=== PATIENT | female | born 1975 | race Caucasian/White ===

== ENCOUNTER → 2021-10-15 12:25 | Outpatient (BNVA) | payer OTHER, SELFPAY | PROVIDERS: PCP Nurse Practitioner Family; Visit Provider Nurse Practitioner Family | DX: G43.909 Migraine, unspecified, not intractable, without status migrainosus (principal); M19.90 Unspecified osteoarthritis, unspecified site; R63.4 Abnormal weight loss; R53.83 Other fatigue; Z13.220 Encounter for screening for lipoid disorders; Z13.6 Encounter for screening for cardiovascular disorders; K91.5 Postcholecystectomy syndrome; Z12.31 Encounter for screening mammogram for malignant neoplasm of breast; Z12.4 Encounter for screening for malignant neoplasm of cervix | CPT/HCPCS: 80053; 80061; 84439; 84443; 84481 ==

== ENCOUNTER 2021-11-30 08:42 | Outpatient (CLI) | payer OTHER, SELFPAY ==
--- NOTE | 2021-11-30 08:46 | MM_ITS ---
WS: [id number] BILATERAL SCREENING DIGITAL TOMOSYNTHESIS MAMMOGRAM WITH CAD HISTORY: screening COMPARISON: 10/26/2014 Bilateral CC and MLO views with tomosynthesis and synthetic mammography submitted. Computer aided det ection analyzed. Breast composition: The breasts are heterogeneously dense, which may obscure small masses. No suspici ous masses, microcalcifications or architectural distortion. Numerous calcifications within each bere st. Calcifications are scattered and not clustered. Calcifications have increased in number since 201 5. MM/[place] [id number] IMPRESSION: BI-RADS: 2-Benign FOLLOW UP: 1 Year Follow-up
== END 2021-11-30 08:43 | disposition home or self-care (01) ==
LOC: RAD 08:42
PROVIDERS: PCP Nurse Practitioner Family; Visit Provider Nurse Practitioner Family
DX: Z12.31 Encounter for screening mammogram for malignant neoplasm of breast (principal); Z01.419 Encounter for gynecological examination (general) (routine) without abnormal findings
CPT/HCPCS: 77063; 77067; 87624

== ENCOUNTER → 2022-04-24 10:45 | Outpatient (BNVA) | payer OTHER, SELFPAY | PROVIDERS: PCP Nurse Practitioner Family; Visit Provider Nurse Practitioner Family | DX: G43.909 Migraine, unspecified, not intractable, without status migrainosus (principal); M19.90 Unspecified osteoarthritis, unspecified site; K91.5 Postcholecystectomy syndrome | CPT/HCPCS: 80053; 85025 ==

== ENCOUNTER → 2022-07-09 11:28 | Outpatient (BNVA) | payer OTHER, SELFPAY | PROVIDERS: PCP Nurse Practitioner Family; Visit Provider Nurse Practitioner Family | DX: M25.512 Pain in left shoulder (principal); W19.XXXA Unspecified fall, initial encounter; Y92.009 Unspecified place in unspecified non-institutional (private) residence as the place of occurrence of the external cause | CPT/HCPCS: 73030 ==

== ENCOUNTER → 2022-07-16 14:13 | Outpatient (BNVA) | payer OTHER, SELFPAY | PROVIDERS: PCP Nurse Practitioner Family; Referring Provider Nurse Practitioner Family; Visit Provider Orthopaedic Surgery | DX: M75.02 Adhesive capsulitis of left shoulder (principal) | CPT/HCPCS: 99203 ==

== ENCOUNTER 2022-07-31 06:00 | Outpatient (RCR) | payer OTHER, SELFPAY | END 2022-07-31 23:59 | disposition home or self-care (01) | LOC: TPT 06:00 | PROVIDERS: Visit Provider Orthopaedic Surgery | DX: M75.02 Adhesive capsulitis of left shoulder (principal) | CPT/HCPCS: 97162 ==

== ENCOUNTER 2022-08-01 06:00 | Outpatient (RCR) | payer OTHER, SELFPAY | END 2022-08-30 23:59 | disposition home or self-care (01) | LOC: TPT 06:00 | PROVIDERS: Visit Provider Orthopaedic Surgery | DX: M75.02 Adhesive capsulitis of left shoulder (principal) | CPT/HCPCS: 97110; 97140 ==

== ENCOUNTER 2022-08-31 06:00 | Outpatient (RCR) | payer OTHER, SELFPAY | END 2022-09-13 23:59 | disposition home or self-care (01) | LOC: TPT 06:00 | PROVIDERS: Visit Provider Orthopaedic Surgery | DX: M75.02 Adhesive capsulitis of left shoulder (principal) | CPT/HCPCS: 97110; 97140; 97164 ==

== ENCOUNTER → 2022-10-01 07:52 | Outpatient (BNVA) | payer OTHER, SELFPAY | PROVIDERS: PCP Nurse Practitioner Family; Visit Provider Nurse Practitioner Family | DX: K91.5 Postcholecystectomy syndrome (principal); G43.909 Migraine, unspecified, not intractable, without status migrainosus; M19.90 Unspecified osteoarthritis, unspecified site; M25.512 Pain in left shoulder; R53.83 Other fatigue | CPT/HCPCS: 80053; 84443 ==

== ENCOUNTER 2022-12-25 12:20 | Outpatient (CLI) | payer OTHER, SELFPAY ==
--- NOTE | 2022-12-25 12:47 | MM_ITS ---
WS: [id number] BILATERAL 3D TOMOSYNTHESIS DIGITAL SCREENING MAMMOGRAPHY WITH CAD CLINICAL INFORMATION: Z12.31 - Encounter for screening mammogram for malignant ... HISTORY: Screening mammogram. No current complaints. COMPARISON: 2021 TECHNIQUE: Bilateral CC and MLO views. FINDINGS: The breasts are composed of heterogeneous fibroglandular density tissue, which can limit the detectio n of small underlying mass lesions. No suspicious mass, asymmetry, calcifications, or architectural d istortion. No evidence of malignancy. Incidental punctate and clustered calcifications. IMPRESSION: MM/[place] [id number] BI-RADS: 2-Benign FOLLOW UP: 1 Year Follow-up Recommend return to annual screening mammography.
== END 2022-12-25 12:21 | disposition home or self-care (01) ==
LOC: RAD 12:22
PROVIDERS: PCP Nurse Practitioner Family; Visit Provider Nurse Practitioner Women's Health
DX: Z12.31 Encounter for screening mammogram for malignant neoplasm of breast (principal)
CPT/HCPCS: 77063; 77067

== ENCOUNTER 2023-01-10 08:50 | Emergency (ER) | payer OTHER, SELFPAY ==
[2023-01-10 09:17] VITALS: BP 115/76; PULSE 102; RESP 17; TEMP 36.4; O2SAT 94; BMI 15.9
--- NOTE | 2023-01-10 09:55 | W.ED.NAVMDI ---
HPI - Nausea/Vomiting/Diarrhea General: Chief complaint: Nausea/Vomiting/Diarrhea Stated complaint: NVD Time Seen by Provider: 01/10/23 09:34 Source: patient and family Mode of arrival: ambulatory Limitations: no limitations History of Present Illness: Patient is a 47-year-old female presents to ED today with a complaint of nausea, vomiting, diarrhea, and body aches. Patient states symptoms started approximately 2.5 days ago. She states they had ate [place] food on Friday for lunch and by 11 PM that evening she began feeling ill. Her significant other who also ate [place] was not sick. She states she had one episode of vomiting at that time but none since although she has continued to feel incredibly nauseous. She has had approximately 10 episodes of watery diarrhea daily since. She is having some abdominal cramping. Overall feels weak because she has not ate much over the past 2 to 3 days. No reported fevers but states she feels hot. MD elicited complaint: nausea, vomiting and diarrhea Onset (ago): day(s) Description of diarrhea: watery Associated nausea: Yes Associated abdominal pain: Yes Location of pain: Diffuse Pain consistency: constant Quality: cramping Exacerbating factors: none Relieving factors: none Associated symtoms: Reports nausea; Denies change in vision, chest pain, dysuria, fatigue, headache(s), palpitations or syncope Review of Systems Const: Reports: chills and body aches; Denies: fever(s) or fatigue Eyes: Denies: change in vision, blurry vision, photophobia, floaters or seeing flashes ENMT: Denies: throat pain, odynophagia, ear or mastoid pain, nasal discharge, nasal congestion or sinus pain Card: Denies: chest pain, palpitations, irregular heart rhythm, edema, swelling of feet/ankles, lightheadedness, syncope or pre-syncope Resp: Denies: dyspnea, productive cough, non-productive cough, pain on inspiration or chest congestion GI: Reports: abdominal pain, nausea, vomiting, diarrhea and GI cramping; Denies: hematemesis, heartburn, hematochezia or melena : Denies: flank pain, difficulty voiding, dysuria, urinary frequency, urinary urgency or urinary hesitancy Musc: Reports: other (generalized achiness ); Denies: neck pain, back pain or extremity pain Skin/Breast: Denies: rash Neuro: Denies: headache(s), numbness in extremities, weakness in extremities or sensory changes PFSH ED PFSH: Medical History Dysplasia of cervix Surgical History H/O colonoscopy H/O eye surgery (~11/21/22) XEN fel stent placed in left eye due to pressure in eye being 67. Performed by Dr. Judah White on 11/21/2022 History of endometrial ablation (~2013) Hx of cholecystectomy Family History Other Adopted Physical Exam Const: COMMON NORMALS: patient oriented x3, no limitations, alert and well nourished GENERAL APPEARANCE: cooperative and in distress (looks like she doesn't feel well) NUTRITIONAL APPEARANCE: thin HENMT: COMMON NORMALS: normocephalic and atraumatic HEAD & SCALP: normal to inspection, normocephalic and atraumatic Eye: COMMON NORMALS: no scleral icterus GENERAL EYE: appearance normal, both eyes and all related structures Neck/C-Spine: COMMON NORMALS: full ROM, no lymphadenopathy, supple and no meningeal signs Chest: COMMONS NORMALS: normal inspection of the chest Resp: COMMON NORMALS: normal respiratory effort and clear to auscultation bilaterally AUSCULTATION: clear to auscultation bilaterally Cardio: COMMON NORMALS: regular rate and regular rhythm RATE: regular rate RHYTHM: regular rhythm GI: COMMON NORMALS: Normal to inspection, nondistended, normoactive bowel sounds present, Soft to palpation, No hepatosplenomegaly present and no masses INSPECTION: Yes normal to inspection AUSCULTATION: Yes normoactive bowel sounds PALPATION: Yes Soft to palpation, Yes Tenderness to palpation present (GI) (generalized tenderness), No Guarding due to palpation present (GI), No Rigid due to palpation and Yes No hepatosplenomegaly present : COMMON NORMALS: Yes no CVA tenderness BLADDER/KIDNEY EXAM: Yes no CVA tenderness Back/Pelvis: COMMON NORMALS: no CVA tenderness and thoracic and lumbar spine normal to inspection Extremity: COMMON NORMALS: normal to inspection GENERAL: Yes normal exam except as noted Neuro: RICHARD COMA SCALE: document GCS findings Richard coma scale eye opening: Spontaneous Dermott coma scale verbal response: Orientated Richard coma scale motor response: Obey commands Richard coma scale total score: 15 COMMON NORMALS: patient oriented x3 SENSORIUM/ORIENTATION: Yes alert MENINGEAL SIGNS: Yes no meningeal signs Skin: COMMON NORMALS: no rashes or lesions noted GENERAL SKIN EXAM: no rashes or lesions noted Course Vital Signs: Vital signs: Vital Signs Temperature 97.5 F L 01/10/23 09:17 Pulse Rate 102 H 01/10/23 09:17 Respiratory Rate 17 01/10/23 09:17 Blood Pressure 115/76 01/10/23 09:17 Pulse Oximetry 94 01/10/23 09:17 Oxygen Delivery Me thod Room Air 01/10/23 09:17 MDM - Nausea/Vomiting/Diarrhea Medical Decision Making Patient here for nausea, generalized body aches, and diarrhea over the past 2.5 days. She has not had any episodes of vomiting or diarrhea here. She was given IV fluids/zofran and does feel better. Her vital signs are stable. Blood work overall is nonactionable. She has a normal white count. Nonspecific elevations to her liver enzymes. She does have a normal tbili and lipase. She is status postcholecystectomy. Hepatitis panel negative. Flu and COVID-negative. I feel symptoms most likely are secondary to a nonspecific viral gastroenteritis. Discussed following up with primary care next week. If diarrhea persist they may opt to perform stool samples. She will also need to have liver enzymes retested. Strict return ED precautions given. Lab Data 01/10/23 10:00 01/10/23 10:00 Laboratory Results WBC 6.61 10^3/uL (3.29-11.43) 01/10/23 10:00 RBC 5.18 10^6/uL (3.85-5.65) 01/10/23 10:00 Hgb 16.80 g/dL (11.27-16.99) 01/10/23 10:00 Hct 50.0 % (36-47) H 01/10/23 10:00 MCV 96.5 fl (85-98) 01/10/23 10:00 MCH 32.4 pg (27-33) 01/10/23 10:00 MCHC 33.6 g/dL (30-55) 01/10/23 10:00 RDW 12.0 % (12.1-15.1) L 01/10/23 10:00 Plt Count 153 10^3/cmm (157-399) L 01/10/23 10:00 MPV 10.8 fL (7.4-10.4) H 01/10/23 10:00 Neut % (Auto) 82.3 % 01/10/23 10:00 Lymph % (Auto) 8.6 % 01/10/23 10:00 [place] % (Auto) 7.9 % 01/10/23 10:00 Eos % (Auto) 0.2 % 01/10/23 10:00 Baso % (Auto) 0.2 % 01/10/23 10:00 Neut # (Auto) 5.45 10^3/uL (1.8-7.7) 01/10/23 10:00 Lymph # (Auto) 0.6 10^3/uL (0.8-4.8) L 01/10/23 10:00 [place] # (Auto) 0.5 10^3/uL (0.2-0.9) 01/10/23 10:00 Eos # (Auto) 0.0 10^3/uL (0.0-0.8) 01/10/23 10:00 Baso # (Auto) 0.0 10^3/uL (0.0-0.1) 01/10/23 10:00 Nucleated RBC % (auto) 0 % 01/10/23 10:00 Nucleated RBCs # 0.0 /100WBC 01/10/23 10:00 Sodium 133 mmol/L (136-145) L 01/10/23 10:00 Potassium 3.6 mmol/L (3.5-5.1) 01/10/23 10:00 Chloride 95 mmol/L (98-107) L 01/10/23 10:00 Carbon Dioxide 22 mmol/L (22-29) 01/10/23 10:00 Anion Gap 19.6 (5-19) H 01/10/23 10:00 BUN 14 mg/dL (6-20) 01/10/23 10:00 Creatinine 0.8 mg/dL (0.5-0.9) 01/10/23 10:00 GFR Calculation 77.2 mL/min (90-130) L 01/10/23 10:00 Glucose 113 mg/dL (65-115) 01/10/23 10:00 Calculated Osmolality 277 mOsm/kg (285-295) L 01/10/23 10:00 Calcium 9.2 mg/dL (8.5-10.5) 01/10/23 10:00 Total Bilirubin 0.7 mg/dL (0.15-1.2) 01/10/23 10:00 AST 100 U/L (0-32) H 01/10/23 10:00 ALT 147 U/L (0-33) H 01/10/23 10:00 Alkaline Phosphatase 259 U/L (35-105) H 01/10/23 10:00 Creatine Kinase 78 U/L (26-192) 01/10/23 10:00 Total Protein 8.1 g/dL (6.6-8.7) 01/10/23 10:00 Albumin 4.2 g/dL (3.5-5.2) 01/10/23 10:00 Globulin 3.9 g/dL (1.3-4.6) 01/10/23 10:00 Lipase 13 U/L (13-60) 01/10/23 10:00 HCG, Qual Negative (Negative) 01/10/23 10:00 Hepatitis A IgM Ab Non-reactive (Nonreactive) 01/10/23 10:00 Hep Bs Antigen Non-reactive (Nonreactive) 01/10/23 10:00 Hep B Core IgM Ab Non-reactive (Nonreactive) 01/10/23 10:00 Hepatitis C Antibody Non-reactive (Nonreactive) 01/10/23 10:00 Influenza Type A Ag negative (Negative) 01/10/23 10:59 Influenza Type B Ag negative (Negative) 01/10/23 10:59 SARS-CoV-2 Ag (Rapid) negative (Negative) 01/10/23 10:59 No radiology studies performed this visit Discharge Plan Discharge Patient Disposition: Home Clinical Impression: Gastroenteritis Condition: Stable Prescriptions: New ondansetron 4 mg tablet,disintegrating 4 mg PO Q8H PRN (Reason: nausea and vomiting) Qty: 14 0RF No Action prednisolone acetate 1 % drops,suspension 1 drp ophthalmic (eye) QID Rx Instructions: use in left eye colestipol 1 gram tablet 1 g PO DAILY 90 Days Qty: 90 1RF Nurtec ODT 75 mg tablet,disintegrating 75 mg PO QDAY 30 Days Qty: 30 11RF Rx Instructions: 1 tab every other day for prevention, 1 as needed for breakthrough migraine headache propranolol 80 mg capsule,extended release 24hr 80 mg PO DAILY 90 Days Qty: 90 1RF tramadol 50 mg tablet 50 mg PO TID 30 Days Qty: 90 1RF dorzolamide-timolol 22.3-6.8 mg/mL drops 1 drp ophthalmic (eye) BID Rx Instructions: use in right eye Discharge Orders: Discharge ED (Routine); Ordered 01/10/23 Ordered By: Natalia Kenney Referrals: Vanessa Maza NP [Primary Care Provider] - Patient Instructions: Gastroenteritis (DC) Activity Restrictions/Additional Instructions: As we discussed continue to push fluids is much as possible to prevent dehydration. Please follow-up with your primary care provider next week for reevaluation. If diarrhea persists they may opt to perform stool samples at that time. As we discussed you had nonspecific elevations to your liver enzymes. These also need to be rechecked through primary care. You may return to the emergency department for worsening pain, repetitive/continued episodes of vomiting or diarrhea, yellowing to your skin or eyes, fevers greater than 100.4, generally feeling worse or unwell, or any other concerns you may have. I hope you begin to feel better soon. 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
[2023-01-10 10:11] LABS: Basophils % 0.2 %; Eosinophils % 0.2 %; Lymphocytes # 0.6 10^3/uL (0.8-4.8); Lymphocytes % 8.6 %; Mean Corpuscular HGB Conc 33.6 g/dL (30-55); Mean Corpuscular Hemoglobin 32.4 pg (27-33); Mean Corpuscular Volume 96.5 fl (85-98); Mean Platelet Volume 10.8 fL (7.4-10.4); Monocytes # 0.5 10^3/uL (0.2-0.9); Monocytes % 7.9 %; Neutrophils # 5.45 10^3/uL (1.8-7.7); Neutrophils % 82.3 %; Nucleated Red Blood Cells % 0 %; Platelet Count 153 10^3/cmm (157-399); Red Blood Count 5.18 10^6/uL (3.85-5.65); White Blood Count 6.61 10^3/uL (3.29-11.43)
--- NOTE | 2023-01-10 10:12 | PC.PHAR ---
pt states has not taken any meds in 3 days
[2023-01-10 10:24] LABS: Alanine Aminotransferase 147 U/L (0-33); Albumin Level 4.2 g/dL (3.5-5.2); Alkaline Phosphatase 259 U/L (35-105); Anion Gap 19.6 (5-19); Aspartate Amino Transferase 100 U/L (0-32); Blood Urea Nitrogen 14 mg/dL (6-20); Calcium 9.2 mg/dL (8.5-10.5); Carbon Dioxide 22 mmol/L (22-29); Chloride 95 mmol/L (98-107); Globulin 3.9 g/dL (1.3-4.6); Glomerular Filtration Rate 77.2 mL/min (90-130); Glucose 113 mg/dL (65-115); Lipase 13 U/L (13-60); Osmolality Calculated 277 mOsm/kg (285-295); Potassium 3.6 mmol/L (3.5-5.1); Sodium 133 mmol/L (136-145); Total Bilirubin 0.7 mg/dL (0.15-1.2); Total Protein 8.1 g/dL (6.6-8.7)
[2023-01-10] MEDS: ondansetron 2 mg/ML SDV 2 mL 4 MG IVP (10:26)
[2023-01-10] MEDS: sodium chloride 0.9% 1,000 ML 999 ML IV (10:26)
[2023-01-10 10:33] LABS: HCG, Serum Qual Negative (Negative)
[2023-01-10 10:49] LABS: Creatine Phosphokinase 78 U/L (26-192)
[2023-01-10 10:59] LABS: Hepatitis A Antibody IgM Non-Reactive (Nonreactive); Hepatitis B Core IgM Non-Reactive (Nonreactive); Hepatitis B Surface Antigen Non-Reactive (Nonreactive); Hepatitis C Virus Antibody Non-Reactive (Nonreactive)
[2023-01-10 11:28] LABS: Influenza A by IFA negative (Negative); Influenza B by IFA negative (Negative)
[2023-01-10 11:29] LABS: SARS Covid-2 Antigen negative (Negative)
== END 2023-01-10 12:00 | disposition home or self-care (01) ==
PROVIDERS: Emergency Provider Physician Assistant; PCP Nurse Practitioner Family
DX: K52.9 Noninfective gastroenteritis and colitis, unspecified (principal); Z11.52 Encounter for screening for COVID-19
CPT/HCPCS: 36415; 80053; 80074; 82550; 83690; 84703; 85025; 87426; 87804; 96374; 99284; J2405; J7030

== ENCOUNTER → 2023-01-27 11:51 | Outpatient (BNVA) | payer OTHER, SELFPAY | PROVIDERS: PCP Nurse Practitioner Family; Visit Provider Nurse Practitioner Family | DX: R11.0 Nausea (principal); R79.89 Other specified abnormal findings of blood chemistry; Z09 Encounter for follow-up examination after completed treatment for conditions other than malignant neoplasm | CPT/HCPCS: 80053 ==

== ENCOUNTER 2023-07-16 10:32 | Emergency (ER) | payer OTHER, SELFPAY ==
[2023-07-16 10:42] VITALS: BP 177/82; PULSE 53; RESP 16; TEMP 36.8; O2SAT 100; BMI 19.2
--- NOTE | 2023-07-16 10:44 | XRR_ITS ---
PROCEDURE INFORMATION: Exam: XR Right Hand Exam date and time: 07/16/2023 10:48 AM Age: 48 years old Clinical indication: Injury or trauma; Fall; Blunt trauma (contusions or hematomas); Right; Injury details: PT fell and landed on hand, pain mostly around 5th digit w emphasis on metacarpal head; Additional info: Fall, right hand/figth digit pain and swelling finger base TECHNIQUE: Imaging protocol: Radiologic exam of the right hand. Views: 3 or more views. COMPARISON: No relevant prior studies available. FINDINGS: Bones/joints: Mildly angulated and mildly comminuted fracture through the neck of the 5th metacarpal. No other osseous, joint, or soft tissue abnormality.. Soft tissues: Normal. XR/XR hand RT min 3V* [id number] IMPRESSION: Boxer's fracture.
--- NOTE | 2023-07-16 10:46 | W.ED.EXTPRO ---
HPI - Extremity Problem General: Chief complaint: Extremity Injury, Upper Stated complaint: right hand pain, fall Time Seen by Provider: 07/16/23 10:43 History of Present Illness: 48-year-old female who presents to the emergency room with hand pain after fall. She says her fifth digit went the wrong direction. She now has pain and swelling at the base of her fifth digit. No other injuries. No head injury. She is neurovascularly intact. Limited range of motion secondary to pain and swelling. Review of Systems Narrative: Constitutional symptoms: Negative except as documented in HPI. Skin symptoms: Negative except as documented in HPI. Eye symptoms: Negative except as documented in HPI. ENMT symptoms: Negative except as documented in HPI. Respiratory symptoms: Negative except as documented in HPI. Cardiovascular symptoms: Negative except as documented in HPI. Gastrointestinal symptoms: Negative except as documented in HPI. Genitourinary symptoms: Negative except as documented in HPI. Musculoskeletal symptoms: Negative except as documented in HPI. Neurologic symptoms: Negative except as documented in HPI. Psychiatric symptoms: Negative except as documented in HPI. Endocrine symptoms: Negative except as documented in HPI. [facility] ED PFSH: Medical History Dysplasia of cervix Surgical History H/O eye surgery (~11/21/22) XEN fel stent placed in left eye due to pressure in eye being 67. Performed by Dr. Judah White on 11/21/2022 Hx of cholecystectomy H/O colonoscopy History of endometrial ablation (~2013) Family History Other Adopted Physical Exam Narrative: EXAM NARRATIVE: General: Alert, no acute distress. Skin: warm and dry Head: Normocephalic Neck: Trachea midline Eye: Extraocular movements are intact. Ears, nose, mouth and throat: Oral mucosa moist Respiratory: Respirations are non-labored Musculoskeletal: Limited range of motion of her fifth digit at the the base of the finger. There is swelling at the knuckle. Neurovascularly intact. Neurological: Alert and oriented, No focal neurological deficit observed. Psychiatric: Cooperative, appropriate mood & affect. Course Vital Signs: Vital signs: Vital Signs Temperature 98.3 F 07/16/23 10:42 Pulse Rate 53 L 07/16/23 10:42 Respiratory Rate 16 07/16/23 10:42 Blood Pressure 177/82 07/16/23 10:42 Pulse Oximetry 100 07/16/23 10:42 Oxygen Delivery Me thod Room Air 07/16/23 10:42 MDM - Extremity (Nontraumatic) Medical Decision Making Medical decision making: Differential diagnosis including but not limited to and based on the above HPI, review of systems and physical exam: Concern for dislocation, fracture versus strain/sprain. X-ray of the hand was ordered. Orders placed to evaluate differential diagnosis based on the above differential, HPI and physical exam X-ray of the right hand: Mildly angulated and mildly comminuted fracture through the neck of the 5th metacarpal. I reviewed the patient's medical record. Consultation: I spoke with orthopedics on-call Dr. Palencia. Recommends splint and follow-up in clinic Reexamination: Patient remained stable. Still some pain and swelling in the distal fifth right metacarpal. No increased work of breathing. No altered mental status. Splint placed by nursing. Neurovascularly intact. Assessment and plan: Right fifth metacarpal fracture -[place] and splint in the emergency room. - Discharged home - Discussed findings and plan with patient. Answered any questions. - All imaging was reviewed and interpreted personally by myself, the ER physician. - Evaluation and treatment of this problem were appropriate in the emergency setting Lab Data Radiology Impressions Hand X-Ray 07/16/23 10:44 IMPRESSION: Boxer's fracture. All radiology interpretation(s) finalized by discharge Discharge Plan Discharge Patient Disposition: Home Clinical Impression: Boxer's fracture Condition: Stable Prescriptions: New hydrocodone-acetaminophen 5-325 mg tablet 1 tab PO Q6H PRN (Reason: pain) Qty: 20 0RF polyethylene glycol 3350 [Miralax] 17 gram/dose powder 17 g PO DAILY Qty: 510 0RF Rx Instructions: Take 1 scoop daily while taking pain medications. No Action prednisolone acetate 1 % drops,suspension 1 drp ophthalmic (eye) QID Rx Instructions: use in left eye Nurtec ODT 75 mg tablet,disintegrating 75 mg PO QDAY 30 Days Qty: 30 11RF Rx Instructions: 1 tab every other day for prevention, 1 as needed for breakthrough migraine headache propranolol 80 mg capsule,extended release 24 hr 80 mg PO DAILY 90 Days Qty: 90 1RF tramadol 50 mg tablet 50 mg PO TID 30 Days Qty: 90 1RF benzonatate 100 mg capsule 100 mg PO TID PRN (Reason: cough) Qty: 90 0RF cephalexin 500 mg capsule 500 mg PO TID 10 Days Qty: 30 0RF dorzolamide-timolol 22.3-6.8 mg/mL drops 1 drp ophthalmic (eye) BID Rx Instructions: use in right eye ondansetron 4 mg tablet,disintegrating 4 mg PO Q6H PRN (Reason: nausea and vomiting) Qty: 90 0RF colestipol 1 gram tablet See Rx Instructions .ROUTE .COMPLEX Qty: 90 1RF Dose Instruction: TAKE ONE TABLET BY MOUTH DAILY Rx Instructions: TAKE ONE TABLET BY MOUTH DAILY ondansetron 4 mg tablet,disintegrating 4 mg PO Q8H PRN (Reason: nausea and vomiting) Qty: 14 0RF Discharge Orders: Discharge ED (Routine); Ordered 07/16/23 Ordered By: Jennifer Pop Referrals: Vanessa Maza NP [Primary Care Provider] - 4-7 days Arlen Palencia MD [Physician] - 4-7 days (Please call for an appointment.) Discharge Diet: Usual diet Discharge Activity: Limit activity as instructed Patient Instructions: Splint Care (ED), Opioid Safety Activity Restrictions/Additional Instructions: Thank you for choosing [facility] for your healthcare needs today. Please realize this is an emergency room and that we are providing you with a medical screening exam and this may not be complete and all inclusive of all the testing and or work up that you may need to determine your ailment or severity of your illness. You have been screened and evaluated and felt safe for discharge. Health conditions do change or evolve sometimes and as such it is important that you follow up with your Primary Doctor to be re checked, 3-5 days is a general good time frame for follow up. 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
[2023-07-16 12:15] VITALS: PULSE 89; RESP 16; O2SAT 100
== END 2023-07-16 12:15 | disposition home or self-care (01) ==
PROVIDERS: Emergency Provider Emergency Medicine; PCP Nurse Practitioner Family
DX: S62.336A Displaced fracture of neck of fifth metacarpal bone, right hand, initial encounter for closed fracture (principal); W19.XXXA Unspecified fall, initial encounter
CPT/HCPCS: 29125; 73130; 99283

== ENCOUNTER → 2023-07-21 14:27 | Outpatient (BNVA) | payer OTHER, SELFPAY | PROVIDERS: PCP Nurse Practitioner Family; Referring Provider Emergency Medicine; Visit Provider Specialist | DX: S62.336A Displaced fracture of neck of fifth metacarpal bone, right hand, initial encounter for closed fracture; W01.0XXA Fall on same level from slipping, tripping and stumbling without subsequent striking against object, initial encounter | CPT/HCPCS: 73130 ==

== ENCOUNTER 2023-07-21 16:18 | Outpatient (CLI) | payer OTHER, SELFPAY | END 2023-07-21 16:19 | disposition home or self-care (01) | LOC: SPT 16:19 | PROVIDERS: PCP Nurse Practitioner Family; Visit Provider Specialist | DX: S62.336A Displaced fracture of neck of fifth metacarpal bone, right hand, initial encounter for closed fracture (principal); W01.0XXA Fall on same level from slipping, tripping and stumbling without subsequent striking against object, initial encounter | CPT/HCPCS: 26600; 26605; 97760; 99204; L3918 ==

== ENCOUNTER → 2023-07-30 10:04 | Outpatient (BNVA) | payer OTHER, SELFPAY | PROVIDERS: PCP Nurse Practitioner Family; Visit Provider Specialist | DX: S62.331D Displaced fracture of neck of second metacarpal bone, left hand, subsequent encounter for fracture with routine healing (principal); X58.XXXD Exposure to other specified factors, subsequent encounter | CPT/HCPCS: 73130 ==

== ENCOUNTER 2023-07-30 11:48 | Outpatient (CLI) | payer OTHER, SELFPAY | END 2023-07-30 11:49 | disposition home or self-care (01) | LOC: SPT 11:49 | PROVIDERS: PCP Nurse Practitioner Family; Visit Provider Specialist | DX: Z46.89 Encounter for fitting and adjustment of other specified devices (principal); S62.306D Unspecified fracture of fifth metacarpal bone, right hand, subsequent encounter for fracture with routine healing; X58.XXXD Exposure to other specified factors, subsequent encounter | CPT/HCPCS: 97760; 99024; L3984 ==

== ENCOUNTER → 2023-08-25 08:46 | Outpatient (BNVA) | payer OTHER, SELFPAY | PROVIDERS: PCP Nurse Practitioner Family; Visit Provider Specialist | DX: S62.306D Unspecified fracture of fifth metacarpal bone, right hand, subsequent encounter for fracture with routine healing; X58.XXXD Exposure to other specified factors, subsequent encounter | CPT/HCPCS: 73130; 99024 ==

== ENCOUNTER → 2023-11-06 11:18 | Outpatient (BNVA) | payer OTHER, SELFPAY | PROVIDERS: PCP Nurse Practitioner Family; Visit Provider Nurse Practitioner Family | DX: Z13.220 Encounter for screening for lipoid disorders (principal); Z13.29 Encounter for screening for other suspected endocrine disorder; K91.5 Postcholecystectomy syndrome; G43.709 Chronic migraine without aura, not intractable, without status migrainosus; R79.89 Other specified abnormal findings of blood chemistry; M15.9 Polyosteoarthritis, unspecified; R53.83 Other fatigue; R63.4 Abnormal weight loss | CPT/HCPCS: 80053; 80061; 84443; 85025 ==

== ENCOUNTER → 2023-12-12 16:42 | Outpatient (BNVA) | payer OTHER, SELFPAY | PROVIDERS: PCP Nurse Practitioner Family; Visit Provider Nurse Practitioner Women's Health | DX: N91.2 Amenorrhea, unspecified (principal); N95.1 Menopausal and female climacteric states | CPT/HCPCS: 82670; 83001; 84146 ==

== ENCOUNTER 2024-01-20 10:18 | Outpatient (CLI) | payer OTHER, SELFPAY ==
--- NOTE | 2024-01-20 10:20 | MM_ITS ---
WS: [id number] VIEWS: MLO and CC views both breasts. 3D digital tomosynthesis is also included in this exam. Comparison made with prior exam of 09/22/2013, 10/26/2014, 11/30/2021, 12/25/2022,. Findings: The breasts are extremely dense, which lowers the sensitivity of mammography. No sign of mass, tumor calcification or architectural distortion. MM/MM scr BI tomosynthesis [id number] Impression: BI-RADS: 2 - Benign FOLLOW-UP: 1 Year Follow-up This mammogram was also analyzed by the Computer Aided Detection System R2 Imag e Nuclear Criticality Safety Engineer.
== END 2024-01-20 10:19 | disposition home or self-care (01) ==
LOC: MOBLMAM 10:21
PROVIDERS: PCP Nurse Practitioner Family; Visit Provider Nurse Practitioner Family
DX: Z12.31 Encounter for screening mammogram for malignant neoplasm of breast (principal); R92.333 Mammographic heterogeneous density, bilateral breasts
CPT/HCPCS: 77063; 77067

== ENCOUNTER → 2024-06-11 08:40 | Outpatient (BNVA) | payer OTHER, SELFPAY | PROVIDERS: PCP Family Medicine; Referring Provider Family Medicine; Visit Provider Student in an Organized Health Care Education/Training Program | DX: Z12.11 Encounter for screening for malignant neoplasm of colon (principal) | CPT/HCPCS: 99204 ==

== ENCOUNTER 2024-07-06 10:06 | Day surgery (SDC) | payer OTHER, SELFPAY ==
[2024-07-06] MEDS: sodium chloride 0.9% 500 ML 30 ML IV (10:34)
[2024-07-06 10:35] VITALS: BP 137/102; PULSE 93; RESP 18; TEMP 36.9; O2SAT 98
--- NOTE | 2024-07-06 10:53 | P.ANESASSM_ITS ---
Pre-Anesthetic Assessment Height/Weight: Height 1.75 m Weight 68.039 kg Temp Pulse Resp BP Pulse Ox O2 Del Method 98.5 F 93 18 137/102 98 Room Air 07/06/24 10:35 07/06/24 10:35 07/06/24 10:35 07/06/24 10:35 07/06/24 10:35 07/06/24 10:35 Preop Diagnosis: screeningn one Operation Date: 07/06/24 11:30 Proposed Procedures p Colonoscopy 90203, G0121, Z12.11(Not Applicable) - Ab Davis MD Familial anesthetic complications: none Was Beta Linda taken within 24 hours: N/A Was Clonidine taken within 24 hours: N/A Last intake: Intake Last Liquid Date 07/05/24 Last Liquid Time 22:00 Last Solid Date 07/04/24 Last Solid Time 21:00 Social No alcohol and No tobacco Exam alert, oriented x 3, clear to auscultation bilaterally and regular rate & rhythm Airway Submandibular: within normal limits Cervical ROM: within normal limits Mallampati: Class II Dentition: full History/ROS No significant history except as noted and No significant complaints Pulmonary None reported CV/HEM None reported None reported Hepatic None reported GI None reported Metabolic None reported Musc/skel None reported Neuropsych None reported Migraines Anesthetic Plan ASA status: 2 Anesthesia: MAC Risk of > 500 ml blood loss (7ml/kg in children): No Medications/Allergies Home Medications ?Medication ?Instructions ?Recorded ?Confirmed ?Last Taken ?Type [place] splint, right hand #1 ea 07/21/23 06/11/24 U nknown Rx Ulnar Gutter Fast Form Splint, #1 ea 07/30/23 06/11/24 Unknown Rx right ondansetron 4 mg disintegrating 4 mg PO Q6H PRN nausea and 11/06/23 06/11/24 06/30/24 06:30 Rx tablet vomiting #90 tabs latanoprost 0.005 % eye drops 1 drp ophthalmic (eye) D AILY 12/12/23 06/11/24 06/30/24 06:30 History dorzolamide 22.3 mg-timolol 6.8 1 drp ophthalmic (eye) BID 02/19/24 06/30/24 06/30/24 06:30 History mg/mL eye drops estradiol 0.025 mg/24 hr 1 patch transdermal .twice w eekly 02/19/24 06/30/24 06/30/24 06:30 Rx semiweekly transdermal patch #24 ea progesterone micronized 100 mg 100 mg PO BEDTIME #90 c aps 02/19/24 06/11/24 Unknown Rx capsule (Prometrium) colestipol 1 gram tablet 1 g PO DAILY #90 tabs 06/30/24 06/30/24 06:30 Rx propranolol 80 mg capsule,24 80 mg PO DAILY 90 days #9 0 caps 05/31/24 06/30/24 06/30/24 06:30 Rx hr,extended release tramadol 50 mg tablet 50 mg PO TID 30 days #90 tab s 05/31/24 06/11/24 06/30/24 06:30 Rx Allergies Allergy/AdvReac Type Severity Reaction Status Date / Time topiramate AdvReac Severe ADR-Blurry Verified 06/30/24 09:02 Vision Current Medications Generic Name Dose Route Start Last Admin Trade Name Freq PRN Reason Stop Dose Admin Sodium Chloride 500 mls @ 30 mls/hr 07/06/24 10:00 07/06/24 10:34 Sodium Chloride 0.9% IV 30 mls/hr .[id number] THIERRY Administration PFSH Anesthesia Medical History History of glaucoma Finger fracture (~07/2023) reset w/o difficulty Dysplasia of cervix Surgical History H/O eye surgery (~11/21/22) XEN fel stent placed in left eye due to pressure in eye being 68. Performed by Dr. Judah White on 11/21/2022 Hx of cholecystectomy 2006 H/O colonoscopy [id number] History of endometrial ablation (~2013) Family History Other Adopted Social History Smoking and tobacco/nicotine status: former use of tobacco/nicotine
--- NOTE | 2024-07-06 11:05 | W.PM.OPSUD ---
Surgery/Procedure H&P Update DATE OF PROCEDURE: July 06, 2024 DATE H&P PERFORMED: 06/11/24 H&P UPDATE INFORMATION: I have reviewed H&P completed within last 30 days, I have examined patient prior to procedure and No changes to prior documentation PREOP DIAGNOSIS: screeningn one PLANNED PROCEDURE: Operation Date: 07/06/24 11:30 Proposed Procedures p Colonoscopy 56034, G0121, Z12.11(Not Applicable) - Ab Davis MD
--- NOTE | 2024-07-06 11:06 | W.PM.OPSUD ---
Surgery/Procedure H&P Update DATE OF PROCEDURE: July 06, 2024 DATE H&P PERFORMED: 06/11/24 H&P UPDATE INFORMATION: I have reviewed H&P completed within last 30 days, I have examined patient prior to procedure and No changes to prior documentation PREOP DIAGNOSIS: screeningn one PLANNED PROCEDURE: Operation Date: 07/06/24 11:30 Proposed Procedures p Colonoscopy 80747, G0121, Z12.11(Not Applicable) - Ab Davis MD
[2024-07-06 11:29] VITALS: BP 109/72; PULSE 93; RESP 18; TEMP 36.6; O2SAT 92
[2024-07-06 11:44] VITALS: BP 112/76; PULSE 79; RESP 18; O2SAT 97
[2024-07-06 11:54] VITALS: BP 128/82; PULSE 76; RESP 18; O2SAT 97
--- NOTE | 2024-07-06 12:05 | ANE.PACU2 ---
Inpatient post-anesthesia follow up: Airway intact: Yes Vital signs: Temperature 97.8 F Pulse Rate 76 Respiratory Rate 18 Blood Pressure 128/82 Pulse Oximetry 97 Oxygen Delivery Me thod Room Air Oxygen Flow Rate Fraction of Inspir ed Oxygen Hydration adequate: Yes Nausea and vomiting: No Pain level: 1 Mental status: Baseline
== END 2024-07-06 12:05 | disposition home or self-care (01) ==
PROVIDERS: PCP Family Medicine; Visit Provider Student in an Organized Health Care Education/Training Program
PROC: 0DJD8ZZ Inspection of Lower Intestinal Tract, Via Natural or Artificial Opening Endoscopic (ICD-10-PCS; CPT 45378; principal; 2024-07-06 11:30)
DX: Z12.11 Encounter for screening for malignant neoplasm of colon (principal); G43.909 Migraine, unspecified, not intractable, without status migrainosus; Z79.899 Other long term (current) drug therapy; Z88.8 Allergy status to other drugs, medicaments and biological substances; Z87.891 Personal history of nicotine dependence
CPT/HCPCS: 45378; J2704; J7040

== ENCOUNTER 2024-09-28 19:58 | Emergency (ER) | payer OTHER, SELFPAY ==
--- OUTSIDE RECORDS SUMMARY | 2024-09-28 20:02 | XMS_ITS | Data Portability ---
Author Organization [facility] - [facility], autoContract Address [address] [facility] [address] [place] [address] Assessment No assessment recorded. Plan of Treatment Reminders Order Date Submit Date Provider Last Modified By Organization Details Last Modified Time Details Appointments None recorded. Lab None recorded. Referral None recorded. Procedures None recorded. Surgeries None recorded. Imaging None recorded. Medication Orders tramadol 50 mg tablet [address] [facility], [address] [place] [address], [id number], 5 15:23:12 propranolol ER 80 mg capsule,24 hr,extended release [address] [facility], [address] [place] [address], [id number], 5 15:23:14 colestipol 1 gram tablet 2024 025 [facility], [address] [place] [address], [id number], 5 12:21:07 tramadol 50 mg tablet [address] [facility], [address] [place] [address], [id number], 4 15:31:58 Patient TargetsNo targets recorded. Patient Instructions Encounter Date Encounter Id Patient Instructions Last Modified By Organization Details Last Modified Time 01/19/2024 [id number] low back pain: exercises [email or web address] Not available 01/19/2024 16:05:35 medical record request* - We are needing any historical records, labs, imaging, procedures and consult notes from 2018 to present day. Thank you! :) [email or web address] Not available 08/03/2024 14:46:11 diarrhea: care instructions [email or web address] Not available 01/19/2024 16:05:35 migraine headache: care instructions [email or web address] Not available 01/19/2024 16:05:35 hot flashes during menopause: care instructions [email or web address] Not available 01/19/2024 16:05:35 f/u in 6 months or sooner if needed. patient dcd to home via pov. [email or web address] Not available 01/19/2024 16:01:36 02/17/2024 [id number] Patient discharged to self to home in stable condition. Follow up instructions given. [email or web address] Not available 02/17/2024 15:31:01 04/16/2024 [id number] low back pain: exercises Not available 04/16/2024 15:23:06 diarrhea: care instructions [email or web address] Not available 04/16/2024 15:23:06 migraine headache: care instructions [email or web address] Not available 04/16/2024 15:23:06 menopausal hormone therapy (ht): care instructions [email or web address] Not available 04/16/2024 15:23:06 high cholesterol : care instructions [email or web address] Not available 04/16/2024 15:05:27 RTC in 1 month o r sooner if needed. pt discharged to home via private vehicle. [email or web address] Not available 04/16/2024 15:18:19 Reason for Referral None Reported. Results Created Date Observation Date Name Description Value Unit Range Abnormal Flag Note LastModifiedBy Organization Detail LastModifiedTime 04/16/1904/17/2024 COMP METAB OLIC PANEL sodium 140 mEq/L 135-14 6 Not Available [facility] [address] [place], [address], 04/17/2024 05:26:34 04/16/19 25 04/17/2024 COMP METAB OLIC PANEL potassium 4.2 mEq/L 3.5-5. 4 Not Available [facility] [address] [place], [address], 04/17/2024 05:26:34 04/16/19 25 04/17/2024 COMP METAB OLIC PANEL chloride 104 mEq/L 95-107 Not Available [facility] [address] [place], [address], 04/17/2024 05:26:34 04/16/19 25 04/17/2024 COMP METAB OLIC PANEL carbon dioxide 24 mEq/L 19-31 Not Available [facility] [address] [place], [place], [address], 04/17/2024 05:26:34 04/16/19 25 04/17/2024 COMP METAB OLIC PANEL anion gap 12 mEq/L 7-23 Not Available [facility] [address] [place], [place], [address], 04/17/2024 05:26:34 04/16/19 25 04/17/2024 COMP METAB OLIC PANEL glucose non-fasting 79 mg/dL 70-139 Not Available [facility] [address] [place], [address], 04/17/2024 05:26:34 04/16/19 25 04/17/2024 COMP METAB OLIC PANEL urea nitrogen (BUN) 8 mg/dL 6-20 Not Available [facility] [address] [place], [place], [address], 04/17/2024 05:26:34 04/16/19 25 04/17/2024 COMP METAB OLIC PANEL creatinine 0.66 mg/dL 0.60-1 .30 Not Available [facility] [address] [place], [place], [address], 04/17/2024 05:26:34 04/16/19 25 04/17/2024 COMP METAB OLIC PANEL 2020 CKD-epi eGFR-cr 108 mL/mi n/1.7 3m'2 >59 Not Available [facility] [address] [place], [address], 04/17/2024 05:26:34 04/16/19 25 04/17/2024 COMP METAB OLIC PANEL BUN/creatini ne ratio 12 ratio Not Available [facility] [address] [place], [address], 04/17/2024 05:26:34 04/16/19 25 04/17/2024 COMP METAB OLIC PANEL calcium total 9.4 mg/dL 8.5-10 .5 Not Available [facility] [address] [place], [address], 04/17/2024 05:26:34 04/16/19 25 04/17/2024 COMP METAB OLIC PANEL protein total 7.6 g/dL 6.1-8. 3 Not Available [facility] [address] [place], [address], 04/17/2024 05:26:34 04/16/19 25 04/17/2024 COMP METAB OLIC PANEL albumin 4.5 g/dL 3.5-5. 2 Not Available [facility] [address] [place], [address], 04/17/2024 05:26:34 04/16/19 25 04/17/2024 COMP METAB OLIC PANEL globulin 3.1 g/dL 1.7-4. 3 Not Available [facility] [address] [place], [address], 04/17/2024 05:26:34 04/16/19 25 04/17/2024 COMP METAB OLIC PANEL A/G ratio 1.5 ratio 0.9-2. 8 Not Available [facility] [address] [place], [address], 04/17/2024 05:26:34 04/16/19 25 04/17/2024 COMP METAB OLIC PANEL bilirubin total 0.4 mg/dL 0.0-1. 2 Not Available [facility] [address] [place], [address], 04/17/2024 05:26:34 04/16/19 25 04/17/2024 COMP METAB OLIC PANEL alkaline phosphatase 112 U/L 40-125 Not Available [facility] [address] [place], [address], 04/17/2024 05:26:34 04/16/19 25 04/17/2024 COMP METAB OLIC PANEL AST (SGOT) 20 U/L 9-40 Not Available [facility] [address] [place], [address], 04/17/2024 05:26:34 04/16/19 25 04/17/2024 COMP METAB OLIC PANEL ALT (SGPT) 14 U/L 5-40 Not Available [facility] [address] [place], [address], 04/17/2024 05:26:34 04/16/19 25 04/17/2024 LIPID PROFI LE cholesterol 175 mg/dL <200 Not Available [facility] [address] [place], [address], 04/17/2024 05:26:34 04/16/19 25 04/17/2024 LIPID PROFI LE triglyceride s 170 mg/dL 0-149 high Not Available [facility] [address] [place], [address], 04/17/2024 05:26:34 04/16/19 25 04/17/2024 LIPID PROFI LE HDL cholesterol 46 mg/dL >39 Not Available [facility] [address] [place], [address], 04/17/2024 05:26:34 04/16/19 25 04/17/2024 LIPID PROFI LE LDL cholesterol 102 mg/dL <100 high Not Available [facility] [address] [facility] [place], [address], 04/17/2024 05:26:34 04/16/19 25 04/17/2024 LIPID PROFI LE non HDL cholesterol 129 mg/dL <130 Not Available [facility] [address] [facility] [place], [address], 04/17/2024 05:26:34 04/16/19 25 04/17/2024 LIPID PROFI LE coronary risk ratio 3.80 <4.44 Comme nt for LIPID PROFI LE Non-H DL Kristan stero l is a tammy r indic ator for cardi ovasc ular risk than LDL-C holes terol for patie nts who have incre ased trigl yceri tete or are non-f astin g. Non-H DL Kristan stero l: < 130 mg/dL (Opti mal) < 160 mg/dL (Near Optim al/Ab ove Optim al) LDL Kristan stero l: < 100 mg/dL (Opti mal) < 130 mg/dL (Near Optim al/Ab ove Optim al) Coron ariana Risk Ratio : [place] [facility] for femal es < 4.44 Not Available [facility] [address] [facility] [place], [address], 04/17/2024 05:26:34 04/16/19 25 04/17/2024 THYRO ID STIM HORMO NE TSH 1.7 mIU/L 0.40-4 .1 Not Available [facility] [address] [facility] [place], [address], 04/17/2024 05:26:35 04/16/19 25 04/17/2024 CBC WITH DIFFE AMY AL WBC 7.2 K/uL 4.0-11 .0 Not Available [facility] [address] [place], [place], [address], 04/17/2024 05:26:35 04/16/19 25 04/17/2024 CBC WITH DIFFE RENTI AL RBC 4.27 M/uL 4.00-5 .50 Not Available [facility] [address] [place], [place], [address], 04/17/2024 05:26:35 04/16/19 25 04/17/2024 CBC WITH DIFFE RENTI AL hemoglobin 13.6 g/dL 12.0-1 6.0 Not Available [facility] [address] [place], [place], [address], 04/17/2024 05:26:35 04/16/19 25 04/17/2024 CBC WITH DIFFE RENTI AL hematocrit 39.3 % 36.0-4 8.0 Not Available [facility] [address] [place], [place], [address], 04/17/2024 05:26:35 04/16/19 25 04/17/2024 CBC WITH DIFFE RENTI AL MCV 92.0 fL 78.0-1 02.0 Not Available [facility] [address] [place], [place], [address], 04/17/2024 05:26:35 04/16/19 25 04/17/2024 CBC WITH DIFFE RENTI AL MCH 31.9 pg 25.0-3 5.0 Not Available [facility] [address] [place], [place], [address], 04/17/2024 05:26:35 04/16/19 25 04/17/2024 CBC WITH DIFFE RENTI AL MCHC 34.6 g/dL 30.0-3 8.0 Not Available [facility] [address] [place], [place], [address], 04/17/2024 05:26:35 04/16/19 25 04/17/2024 CBC WITH DIFFE RENTI AL RDW 12.4 % 11.5-1 6.0 Not Available [facility] [address] [place], [place], [address], 04/17/2024 05:26:35 04/16/19 25 04/17/2024 CBC WITH DIFFE RENTI AL platelet count 246 K/uL 150-45 0 Not Available [facility] [address] [place], [place], [address], 04/17/2024 05:26:35 04/16/19 25 04/17/2024 CBC WITH DIFFE RENTI AL abs neutrophils 4.3 K/uL 1.8-7. 0 Not Available [facility] [address] [place], [address], 04/17/2024 05:26:35 04/16/19 25 04/17/2024 CBC WITH DIFFE RENTI AL abs lymphocytes 2.1 K/uL 1.0-4. 0 Not Available [facility] [address] [place], [address], 04/17/2024 05:26:35 04/16/19 25 04/17/2024 CBC WITH DIFFE RENTI AL abs monocytes 0.7 K/uL 0.1-1. 1 Not Available [facility] [address] [place], [address], 04/17/2024 05:26:35 04/16/19 25 04/17/2024 CBC WITH DIFFE RENTI AL abs eosinophils 0.1 K/uL 0.0-0. 5 Not Available [facility] [address] [place], [address], 04/17/2024 05:26:35 04/16/19 25 04/17/2024 CBC WITH DIFFE RENTI AL abs basophils 0.0 K/uL 0.0-0. 3 Not Available [facility] [address] [place], [address], 04/17/2024 05:26:35 04/16/19 25 04/17/2024 CBC WITH DIFFE RENTI AL abs immature grans 0.0 K/uL 0.0-0. 1 Not Available [facility] [address] [place], [place], [address], 04/17/2024 05:26:35 04/16/19 25 04/17/2024 CBC WITH DIFFE RENTI AL neutrophils 59.8 % Not Available [facility] [address] [place], [place], [address], 04/17/2024 05:26:35 04/16/19 25 04/17/2024 CBC WITH DIFFE RENTI AL lymphocytes 28.5 % Not Available [facility] [address] [place], [place], [address], 04/17/2024 05:26:35 04/16/19 25 04/17/2024 CBC WITH DIFFE RENTI AL monocytes 9.8 % Not Available [facility] [address] [place], [place], [address], 04/17/2024 05:26:35 04/16/19 25 04/17/2024 CBC WITH DIFFE RENTI AL eosinophils 1.1 % Not Available [facility] [address] [place], [place], [address], 04/17/2024 05:26:35 04/16/19 25 04/17/2024 CBC WITH DIFFE RENTI AL basophils 0.4 % Not Available [facility] [address] [place], [address], 04/17/2024 05:26:35 04/16/19 25 04/17/2024 CBC WITH DIFFE AMY AL immature grans 0.4 % Not Available [facility] [address] [facility] [place], [address], 04/17/2024 05:26:35 04/16/19 25 04/17/2024 CBC WITH DIFFE RENTI AL nucleated RBCs <1.0 /100_ WBCs <1 Not Available [facility] [address] [facility] [place], [address], 04/17/2024 05:26:35 05/15/19 25 03/23/2018 MRI, lumba r spine , w/o contr ast No observ ation record ed. [address], [address], 05/24/2024 12:02:30 Result Notes None recorded. Problems No Known Problems Procedures Surgical History Date Name Laterality Status Provider Name and Address Organization Details Recorded Time 03/03/19 24 cataract surgery completed Osvaldo [facility] 01/19/2024 15:24:27 03/03/19 07 cholecystectomy completed Osvaldo [facility]aton [facility] 01/19/2024 15:23:10 Imaging Results None recorded. Procedure Notes None recorded. Medical Equipment None Reported. Allergies No known drug allergies Medications Name Sig Start Date Stop Date Status Note LastModified by Organization Details LastModified Time latanoprost 0.005 % eye drops INSTILL 1 DROP INTO EACH EYE IN THE EVENING active Not Available Not Available No t Available tramadol 50 mg tablet TAKE 1 TABLET BY MOUTH THREE TIMES DAILY active Not Available Not Available No t Available prednisolon e acetate 1 % eye drops,suspe nsion INSTILL 1 DROP INTO EACH EYE TWICE DAILY active Not Available Not Available No t Available benzonatate 100 mg capsule TAKE 1 CAPSULE BY MOUTH THREE TIMES DAILY NEEDED FOR COUGH 01/18 completed Not Available Not Available Not Available timolol maleate 0.25 % eye drops INSTILL 1 DROP INTO EACH EYE ONCE DAILY 01/18 completed Not Available Not Available Not Available cephalexin 500 mg capsule TAKE 1 CAPSULE BY MOUTH THREE TIMES DAILY FOR 10 DAYS 01/18 completed Not Available Not Available Not Available propranolol ER 80 mg capsule,24 hr,extended release TAKE 1 CAPSULE BY MOUTH ONCE DAILY active Not Available Not Available No t Available dorzolamide 22.3 mg-timolol 6.8 mg/mL eye drops INSTILL 1 DROP TWICE DAILY active Not Available Not Available No t Available ondansetron 4 mg disintegrat ing tablet DISSOLVE 1 TABLET IN MOUTH EVERY 6 HOURS NEEDED FOR NAUSEA AND VOMITING 01/18 completed Not Available Not Available Not Available colestipol 1 gram tablet TAKE 1 TABLET BY MOUTH EVERY DAY active Not Available Not Available No t Available progesteron e micronized 100 mg capsule TAKE 1 CAPSULE BY MOUTH AT BEDTIME active Not Available Not Available No t Available Heather 0.025 mg/24 hr transdermal patch APPLY 1 PATCH TRANSDERM ALLY TWICE WEEKLY; TAKE IN CONJUNCTI ON WITH PROMETRIU M active Not Available Not Available No t Available [facility] ODT 75 mg disintegrat ing tablet TAKE ONE TABLET BY MOUTH EVERY OTHER DAY FOR preventio n, 1 NEEDED FOR breakthro ugh migraine HEADACHE 01/18 completed Not Available Not Available Not Available Vitals Date Recorded Body height Body mass index (BMI) Body weight Body temperature Heart rate Respiratory rate Oxygen saturation Oxygen saturation in Arterial blood by Pulse oximetry Systolic And Diastolic Provider Name and Address Organization Details Last Updated DateTime 5 176.53 cm 21.8 kg/m2 40862.8 6 g 98.8 [degF] 61 /min 16 /min 100 % 100 % 126/78 mm[Hg] Osvaldo [facility] 5 15:03:42 Date Recorded Body height Body mass index (BMI) Body weight Body temperature Heart rate Respiratory rate Oxygen saturation Oxygen saturation in Arterial blood by Pulse oximetry Systolic And Diastolic Provider Name and Address Organization Details Last Updated DateTime 4 176.53 cm 21.3 kg/m2 79905.2 9 g 98.5 [degF] 61 /min 16 /min 98 % 98 % 122/88 mm[Hg] Osvaldo [facility] 4 15:38:57 Date Recorded Body height Body mass index (BMI) Body weight Body temperature Heart rate Respiratory rate Oxygen saturation Oxygen saturation in Arterial blood by Pulse oximetry Systolic And Diastolic Provider Name and Address Organization Details Last Updated DateTime 4 176.53 cm 21.9 kg/m2 21427.5 6 g 99.2 [degF] 67 /min 18 /min 99 % 99 % 122/62 mm[Hg] Alejandra [facility] 4 15:10:54 Social History Question Answer Notes LastModified by Organizat ion Details LastModified Time Tobacco Smoking Status Never Smoker [facility] 01/19/2024 15:21:21 Do You Have An Advance Directive? No [email or web address] Information not available 01/19/2024 Are You Blind Or Do You Have Difficulty Seeing? No [email or web address] Information not available 01/19/2024 What Is Your Level Of Caffeine Consumption? Moderate [email or web address] Information not available 01/19/2024 Are You Deaf Or Do You Have Serious Difficulty Hearing? No [email or web address] Information not available 01/19/2024 What Is The Highest Grade Or Level Of School You Have Completed Or The Highest Degree You Have Received? [id number] Information not available 01/19/2024 Are There Any Guns Present In Your Home? Yes [email or web address] Information not available 01/19/2024 What Was The Date Of Your Most Recent Tobacco Screening? 04/16/2024 [email or web address] Information not available 04/16/2024 How Many Children Do You Have? 3 [email or web address] Information not available 01/19/2024 Do You Use Protection During Sex? No [email or web address] Information not available 01/19/2024 What Is Your Relationship Status? [email or web address] Information not available 01/19/2024 Are You Sexually Active? Yes [email or web address] Information not available 01/19/2024 Do You Have Smoke And Carbon Monoxide Detectors In Your Home? Yes [email or web address] Information not available 01/19/2024 Are You Passively Exposed To Smoke? No Information no t available 01/19/2024 Has Tobacco Cessation Counseling Been Provided? Yes [email or web address] Information not available 01/19/2024 On What Date Was Tobacco Cessation Counseling Provided? 04/16/2024 [email or web address] Information not available 04/16/2024 Do You Have Difficulty Walking Or Climbing Stairs? No [email or web address] Information not available 01/19/2024 Sex: Unknown Functional Status Question Answer Note LastModified by Organizat ion Details LastModified Time Do you use any illicit or recreational drugs? No [email or web address] Information not available 01/19/2024 Do you or have you ever used any other forms of tobacco or nicotine? No Information not available 01/19/2024 What is your level of alcohol consumption? None [email or web address] Information not available 01/19/2024 Are you currently employed? No [email or web address] Information not available 01/19/2024 Do you have transportation difficulties? No [email or web address] Information not available 01/19/2024 Are you able to walk? YESWOREST [email or web address] Information not available 01/19/2024 Do you have difficulty doing errands alone? No [email or web address] Information not available 01/19/2024 Are you able to care for yourself independently? Yes [email or web address] Information not available 01/19/2024 Do you have difficulty dressing, bathing, grooming, or toileting? No [email or web address] Information not available 01/19/2024 Do you or have you ever used any nicotine-free cigarettes, vape, or chewing tobacco? No [email or web address] Information not available 01/19/2024 Mental Status Question Answer Note LastModified by Organization D etails LastModified Time Do you have difficulty concentrating, remembering or making decisions? No [email or web address] Information no t available 01/19/2024 Family History Nothing Reported. Medical History No medical history recorded. Gynecological History Statement/Question Response Date of LMP 03/03/2013 Obstetrics History GPAL:G 0 P 0 0 0 0 Past Encounters Encounter ID Performer Location Encounter Start Date Encounter Closed Date Diagnosis/Indication Diagnosis SNOMED-CT Code Diagnosis ICD10 Code Diagnosis Note [id number] KATEY Calix [address] [place] [id number] 01/19/2024 15:08:54 01/19/2024 16:08:22 Degeneration of lumbar intervertebral disc 02653386 M51.369 Lumbar radiculopathy 128 184072 M54.16 patient reports that she has been receiving tramadol but there is no record on PDMPwill request records for imaging and clarificat ion if she is taking this Diarrhea 67975436 R19.7 r/t having gallbladde r removed Menopausal flushing 1983 [address]405 N95.1 patient [facility] at [facility] and they manage her estradiol and progestero ne Migraine 73389164 G43.90 9 stablecont inue propranolo l 80 mg ER Influenza vaccination declined 314526614 Z28.21 [id number] SAUL GRAY [address] [place] [id number] 02/17/2024 15:00:19 02/17/2024 15:52:40 Chronic low back pain 728083267 M54.50 PDMR reviewed [id number] KATEY Calix [address] [place] [id number] 04/16/2024 14:40:24 04/16/2024 16:12:54 Hyperlipidemia 66648389 E78.5 Chronic low back pain 27 0964178 M54.50 PDMP was reviewed for patient and no inappropri ate scheduled drug use was identified have not received her neurology recordspat ient is going to get them and bring them indiscusse d with patient that I will refill tramadol for 30 days and I will not refill further until I receive recordspat ient reports that she has been taking tramadol 3x/dayrx written for 3x/day Lumbar radiculopathy 128 955065 M54.16 Migraine 98014613 G43.90 9 stablecont inue propranolo l 80 mg ER Diarrhea 57976199 R19.7 r/t having gallbladde r removedbil e salt diarrhea Hormone re placement therapy 991396262 Z79.890 Health Concerns Section Related Observation LastModified by Organization Detai ls LastModified Time None Recorded Concern Status LastModified by Organization Details LastModified Time None Recorded Advance Directives Directive N: Payers Insurance Date Sequence Insurance Name Policy Number Policy Cagle Covered Member ID Cagle Member ID Guarantor Name 07/14/2024 1 ROSS (ROSS) Alisson Dawson [id number] Alisson Dawson OBGyn Episode No OBEpisode recorded.
--- OUTSIDE RECORDS SUMMARY | 2024-09-28 20:02 | XMS_ITS | CCD ---
Author Name Interface, [id number] lity Address [place] [address] [facility] Address [place] [address] Care Team Providers Care Lighting Adviser Name Role Phone Maxwell Claros MD Unavailable Unavailable Reason for Visit SCR Social History Date Name Value Sex Female
[2024-09-28 20:04] VITALS: BP 174/97; PULSE 63; RESP 16; TEMP 36.6; O2SAT 99
[2024-09-28 21:00] VITALS: BP 140/81; PULSE 71; O2SAT 100
--- NOTE | 2024-09-28 21:18 | W.ED.SKABFB ---
HPI - Skin/Abscess/Foreign Bdy General: Chief complaint: Skin/Abscess/Foreign Body Stated complaint: Yesterday Wasp Sting, Lt forearm swelling Time Seen by Provider: 09/28/24 20:58 Source: patient Mode of arrival: ambulatory Limitations: no limitations History of Present Illness: 41-year-old female states she stung by a wasp left forearm yesterday states today she had some increased swelling redness and warmth. States she taken some Benadryl at home with no improvement denies any shortness of breath denies any fevers rates her pain a 3 out of 10. Associated symptoms: Deny chills, fever(s), nausea or vomiting Related Data Home Medications ?Medication ?Instructions ?Recorded ?Confirmed latanoprost 0.005 % eye drops 1 drp ophthalmic (eye) DAILY 12/12/23 08/23/24 dorzolamide 22.3 mg-timolol 6.8 1 drp ophthalmic (eye) BID 02/19/24 08/23/24 mg/mL eye drops Previous Rx's ?Medication ?Instructions ?Recorded gal[place] splint, right hand #1 ea 07/21/23 Ulnar Gutter Fast Form Splint, #1 ea 07/30/23 right ondansetron 4 mg disintegrating 4 mg PO Q6H PRN nausea and 11/06/23 tablet vomiting #90 tabs estradiol 0.025 mg/24 hr 1 patch transdermal .twice weekly 02/19/24 semiweekly transdermal patch #24 ea progesterone micronized 100 mg 100 mg PO BEDTIME #90 caps 02/19/24 capsule (Prometrium) colestipol 1 gram tablet 1 g PO DAILY #90 tabs 05/31/24 propranolol 80 mg capsule,24 80 mg PO DAILY 90 days #90 caps 05/31/24 hr,extended release tramadol 50 mg tablet 50 mg PO TID 30 days #90 tabs 08/23/24 cephalexin 500 mg capsule 500 mg PO TID 7 days #21 caps 09/28/24 Allergies Allergy/AdvReac Type Severity Reaction Status Date / Time topiramate AdvReac Severe ADR-Blurry Verified 09/28/24 20:07 Vision Review of Systems Const: Denies: fever(s), chills, body aches or change in appetite ENMT: Denies: throat pain or dental pain Card: Denies: chest pain Resp: Denies: dyspnea GI: Denies: abdominal pain, nausea, vomiting or diarrhea Musc: Denies: neck pain or back pain Skin/Breast: Reports: erythema Neuro: Denies: headache(s) PFSH ED PFSH: Medical History History of glaucoma Finger fracture (~07/2023) reset w/o difficulty Dysplasia of cervix Surgical History H/O eye surgery (~11/21/22) XEN fel stent placed in left eye due to pressure in eye being 68. Performed by Dr. Judah White on 11/21/2022 Hx of cholecystectomy 2006 H/O colonoscopy [id number] 2024-- Ryan History of endometrial ablation (~2013) Family History Other Adopted Social History Smoking and tobacco/nicotine status: former use of tobacco/nicotine Physical Exam Const: COMMON NORMALS: no acute distress, patient oriented x3 and healthy appearing HENMT: COMMON NORMALS: normocephalic and atraumatic HEAD & SCALP: normocephalic and atraumatic Eye: COMMON NORMALS: conjunctivae normal CONJUNCTIVA: Yes conjunctivae normal Neck/C-Spine: COMMON NORMALS: full ROM and supple Chest: COMMONS NORMALS: normal inspection of the chest Resp: COMMON NORMALS: normal respiratory effort Cardio: COMMON NORMALS: regular rate RATE: regular rate Extremity: NARRATIVE EXTREMITY EXAM: Some erythema noted to left forearm no abscess it is warm to touch no signs of compartment syndrome Neuro: COMMON NORMALS: patient oriented x3, moves all extremities and no focal motor deficits Psych: COMMON NORMALS: mental status grossly normal, Normal thought process present and cooperative THOUGHT PROCESS: Normal thought process present Skin: COMMON NORMALS: no rashes or lesions noted and no wounds GENERAL SKIN EXAM: no rashes or lesions noted Course Vital Signs: Vital signs: Vital Signs Temperature 97.8 F 09/28/24 20:04 Pulse Rate 63 09/28/24 20:04 Respiratory Rate 16 09/28/24 20:04 Blood Pressure 174/97 09/28/24 20:04 Pulse Oximetry 99 09/28/24 20:04 Oxygen Delivery Me thod Room Air 09/28/24 20:04 MDM - Skin/Abscess/Foreign Bdy Medicial Decision Making Patient presents here with a wasp sting possible secondary cellulitis patient stable for discharge follow-up PCP return if worsening. Medical Records I reviewed the patient's medical records. No radiology studies performed this visit Discharge Plan Discharge Patient Disposition: Home Clinical Impression: Cellulitis, Sting, wasp Condition: Stable Prescriptions: New cephalexin 500 mg capsule 500 mg PO TID 7 Days Qty: 21 0RF No Action latanoprost 0.005 % drops 1 drp ophthalmic (eye) DAILY (DME) galvest[place] splint, right hand See Rx Instructions .Route .MEDSUPPLY Qty: 1 0RF Rx Instructions: As directed (DME) Ulnar Gutter Fast Form Splint, right See Rx Instructions .Route .MEDSUPPLY Qty: 1 0RF Rx Instructions: As directed ondansetron 4 mg tablet,disintegrating 4 mg PO Q6H PRN (Reason: nausea and vomiting) Qty: 90 0RF colestipol 1 gram tablet 1 g PO DAILY Qty: 90 1RF propranolol 80 mg capsule,extended release 24 hr 80 mg PO DAILY 90 Days Qty: 90 1RF dorzolamide-timolol 22.3-6.8 mg/mL drops 1 drp ophthalmic (eye) BID estradiol 0.025 mg/24 hr patch semiweekly 1 patch transdermal .twice weekly Qty: 24 3RF Rx Instructions: take in conjunction with prometrium progesterone micronized [Prometrium] 100 mg capsule 100 mg PO BEDTIME Qty: 90 3RF tramadol 50 mg tablet 50 mg PO TID 30 Days Qty: 90 2RF Discharge Orders: Discharge ED (Routine); Ordered 09/28/24 Ordered By: Manjit Garibay Referrals: Ayesha Trinh DO [Primary Care Provider, Family Practice] - 4-7 days Discharge Diet: Advance as tolerated Discharge Activity: Resume usual activity Patient Instructions: Cellulitis (ED), Insect Bite or Sting (ED) Print Language: Filipino Coding Level of Care Code ED Public Health Clinical Nurse Specialist for Lorri Pak
[2024-09-28 21:46] VITALS: BP 140/81; PULSE 66; O2SAT 100
== END 2024-09-28 21:47 | disposition home or self-care (01) ==
PROVIDERS: Emergency Provider Emergency Medicine; PCP Family Medicine
DX: L03.114 Cellulitis of left upper limb (principal); T63.461A Toxic effect of venom of wasps, accidental (unintentional), initial encounter; X58.XXXA Exposure to other specified factors, initial encounter; Z87.891 Personal history of nicotine dependence
CPT/HCPCS: 96372; 99284; J1100; J9999

== ENCOUNTER 2025-01-20 08:27 | Outpatient (CLI) | payer OTHER, SELFPAY ==
--- NOTE | 2025-01-20 09:00 | MM_ITS ---
WS: [id number] BILATERAL SCREENING DIGITAL TOMOSYNTHESIS MAMMOGRAM WITH CAD HISTORY: Z12.31 - Encounter for screening mammogram for malignant ... COMPARISON: 01/20/2024, 12/25/2022, 11/30/2021 Bilateral CC and MLO views with tomosynthesis and synthetic mammography submitted. Computer aided detection analyzed. Breast composition: The breasts are heterogeneously dense, which may obscure small masses. No suspicious masses, microcalcifications or architectural distortion. Numerous scattered calcifications within each breast. No suspicious grouping of calcifications. MM/MM [facility] tomosynthesis [id number] IMPRESSION: BI-RADS: 2 - Benign FOLLOW UP: 1 Year Follow-up
== END 2025-01-20 08:28 | disposition home or self-care (01) ==
LOC: RAD 08:28
PROVIDERS: PCP Family Medicine; Visit Provider Nurse Practitioner Women's Health
DX: Z12.31 Encounter for screening mammogram for malignant neoplasm of breast (principal); R92.333 Mammographic heterogeneous density, bilateral breasts; R92.1 Mammographic calcification found on diagnostic imaging of breast
CPT/HCPCS: 77063; 77067